=== PATIENT | female | born 1965 | race Hispanic/Latino ===

== ENCOUNTER 2018-10-11 10:57 | Emergency (ER) | payer OTHER ==
[~2018-10-11] VITALS: Ht 162.6 cm; Wt 65.8 kg
--- OUTSIDE RECORDS SUMMARY | 2018-10-11 11:01 | XMS REPORT | Continuity of Care Document ---
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 Abnormal EKG Active Problem 09/17/2018 [facility] PAOD (<span ID="[id number]">Confirmed</span>) Active Problem 09/17/2018 [facility] Medications Medication Details Route Status Patient Instructions Ordering Provider Order Date Source Tacrolimus 0 Refill(s) Active 02/01/2018 [facility] Clobetasol Propionate 0.0005 MG/MG Topical Ointment 1 appl, TOP, BID, 0 Refill(s) Active 02/01/2018 [facility] Estradiol 1 MG Oral Tablet 1 mg=1 tab, PO, Daily, 0 Refill(s) Active 02/01/2018 [facility] Vitamin D3 5000 intl units oral tablet 5,000 IntlUnit=1 tab, PO, Daily, 0 Refill(s) Active 02/01/2018 [facility] levothyroxine 125 mcg (0.125 mg) oral tablet 125 microgram=1 tab, PO, Daily, 0 Refill(s) Active 02/01/2018 [facility] levothyroxine 125 mcg (0.125 mg) oral capsule 125 microgram=1 cap, PO, Daily, # 30 cap, 3 Refill(s) Inactive 02/01/2018 [facility] benzonatate 200 MG Oral Capsule benzonatate 200 mg capsule Take 1 capsule 3 times a day by oral route. Active [facility] Fluticasone propionate 0.05 MG/ACTUAT Metered Dose Nasal [place] fluticasone 50 mcg/actuation nasal spray,suspension [place] 2 sprays every day by intranasal route as needed for 10 days. Active [facility] Levothyroxine Sodium 0.125 MG Oral Tablet levothyroxine 125 mcg tablet Active [facility] Lidocaine Hydrochloride 20 MG/ML Mucous Membrane Topical Solution Lidocaine Viscous 2 % mucosal solution Take 15 mL every 3 hours by oral route as needed. Active [facility] liothyronine sodium 0.005 MG Oral Tablet liothyronine 5 mcg tablet Active [facility] Allergies, Adverse Reactions, Alerts Substance Category Reaction Severity Reaction type Status Date Reported Comments Source Iodine Allergy to substance 12/21/2012 [facility] iodine Assertion Drug allergy Active [facility] Immunizations Immunization Date Given Site Status Last Updated Comments Source Tdap 09/02/2007 completed [facility] Results Order Name Results Value Reference Range Date Interpretation Comments Source Breast Mammo Scrn BRYCE incl CAD MA Breast Mammo Scrn BRYCE incl CAD MA BILATERAL DIGITAL SCREENING MAMMOGRAM WITH CAD: 10/20/2017 CLINICAL: /Routine Annual. Current study was evaluated with a Computer Aided Detection (CAD) system. COMPARISON:Comparison is made to exams dated: 08/19/2008 mammogram, 09/21/2010 mammogram, 02/04/2013 mammogram, and 02/26/2013 mammogram. TECHNIQUE: Mammographic views were obtained using digital acquisition. Current study was also evaluated with a Computer Aided Detection (CAD) system. FINDINGS: The tissue of both breasts is heterogeneously dense, which could obscure detection of small masses. No significant masses, calcifications, or other findings are seen in either breast. There has been no significant interval change. IMPRESSION: NEGATIVE RECOMMENDATION:There is no mammographic evidence of malignancy. A 1 year screening mammogram is recommended.(10/21/2018) This exam was interpreted at [id number] for MITALI Alarcon, 14. Professional services are provided by the [facility]. Arturo Denny M.D., cm/penrad:10/31/2017 14:15:10 Mender Hand(s): RT Melly(R)(M), Nasir Alarcon letter sent: BI-RADS 1/2 Dense Mammogram BI-RADS: 1 Negative 10/20/2017 - - Read by: Jimmy Head MD Dictated Date/time: 10/31/17 14:15 Electronically Signed by: Jimmy Head MD 10/31/17 14:15 FINAL REPORT ISIAH Alarcon RESULT negative 04/08/2017 [facility] SWAB LOCATION Left and Right tonsillar pillars 04/08/2017 [facility] Influenza A negative 04/08/2017 [facility] Influenza B negative 04/08/2017 [facility] Vital Signs Vital Sign Value Date Comments Source BMI Calculated 28.85 02/01/2018 [facility] Weight 73.864 02/01/2018 [facility] Height 160.02 cm 02/01/2018 [facility] Heart Rate 76 02/01/2018 [facility] Systolic (mm Hg) 120 02/01/2018 [facility] Diastolic (mm Hg) 80 02/01/2018 [facility] Diastolic (mm Hg) 70 04/08/2017 [facility] Height 64 04/08/2017 [facility] Systolic (mm Hg) 110 04/08/2017 [facility] Weight 152 04/08/2017 [facility] Encounters Location Location Details Encounter Type Encounter Number Reason For Visit Attending Provider ADM Date DC Date Status Source [place] - [facility] - [id number] Dudley, 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 [id number] Melida Dudley 04/08/2017 [facility] Outpatient [id number] KIMBERLEE TEJEDA 02/01/2018 Active [facility] Outpatient [id number] Kimberlee Tejeda 02/01/2018 02/02/2018 Medical [facility] Outpatient [id number] ECHO VISIT 02/21/2018 Active [facility] Outpatient [id number] ECHO VISIT 02/21/2018 Active [facility] Ambulatory Pre-Reg [id number] NURSE VISIT 02/21/2018 02/21/2018 [facility]ulatory Pre-Reg [id number] NURSE VISIT 02/21/2018 02/21/2018 Medical [facility] Outpatient [id number] ECHO VISIT 02/28/2018 Active [facility] Outpatient [id number] ECHO VISIT 02/28/2018 Active [facility] Outpatient [id number] NURSE VISIT 02/28/2018 [facility]01[facility] [id number] NURSE VISIT 02/28/2018 03/01/2018 [facility] Procedures Procedure Code Date Perfomer Comments Source Hysterectomy [facility] Bypass of stomach [id number] [facility] section [id number] [facility] Hysterectomy [id number] [facility] Tubulation [id number] [facility]
--- OUTSIDE RECORDS SUMMARY | 2018-10-11 11:01 | XMS REPORT | Summary of Care ---
Author Author [facility] Cardiology [facility] Address Unknown Phone Unavailable Encounter HQ Encntr_alias(FIN) [id number] Date(s): 02/21/18 - 02/21/18 [facility] [address] [facility] [address] [place] [phone] Attending Physician: VISIT, NURSE LENDING CONSULTANT ECHO Vital Signs No data available for this section Problem List Condition Effective Dates Status Health Status Informant Bilateral leg Active cramps(Confirmed) Abnormal Active EKG(Confirmed) PAOD (peripheral Active arterial occlusive disease)(Confirmed) Allergies, Adverse Reactions, Alerts Substance Reaction Severity Status iodine Active Medications No data available for this section Results No data available for this section Immunizations No data available for this section Procedures Procedure Date Related Diagnosis Body Site Status Bypass of stomach Completed section Completed Hysterectomy Completed Tubulation Completed Social History Social History Type Response Smoking Status Never smoker; Exposure to Tobacco Smoke None; Cigarette Smoking Last 365 Days No; Reg Smoking Cessation Counseling No entered on: 02/01/18 Assessment and Plan No data available for this section
--- OUTSIDE RECORDS SUMMARY | 2018-10-11 11:01 | XMS REPORT ---
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 Allergies, Adverse Reactions, Alerts This patient has no known allergies or adverse reactions. Medications This patient has no known medications. Results Test Description Test Time Test Comments Text Results Atomic Results Result Comments CHEST 2 VIEWS [place] [address] Patient Name: SCARLET MCELROY MR #: [id number] : 1965 Age/Sex: 52/F Req #: [id number] Adm Physician: Ordered by: CORA OCHOA MD Report #: [id number] Location: ER Room/Bed: Procedure: [id number] DX/CHEST 2 VIEWS Exam Date: 07/04/17 Exam Time: 2040 REPORT STATUS: Signed EXAMINATION: CHEST 2 VIEWS INDICATION: cough COMPARISON: None FINDINGS: TUBES and LINES: None. LUNGS: Lungs are well inflated. Lungs are clear. There is no evidence of pneumonia or pulmonary edema. PLEURA: No pleural effusion or pneumothorax. HEART AND MEDIASTINUM: The cardiomediastinal silhouette is unremarkable. BONES AND SOFT TISSUES: No acute osseous lesion. Soft tissues are unremarkable. UPPER ABDOMEN: No free air under the diaphragm. IMPRESSION: No acute thoracic abnormality. Signed by: Dr. Lb Bruce M.D. on 07/04/2017 9:27 PM Dictated By: LB ECHAVARRIA MD 26 Transcribed By: STEPHANIE on 07/04/172126 COPY TO: CORA OCHOA MD
--- OUTSIDE RECORDS SUMMARY | 2018-10-11 11:01 | XMS REPORT | Summary of Care ---
Author Author [facility] Cardiology [facility] Organization [facility] Address Unknown Phone Unavailable Encounter MAGGY Lim(FIN) [id number] Date(s): 02/01/18 - 02/01/18 [facility] [address] [facility] [address] [place] [phone] Discharge Disposition: Home or Self Care Attending Physician: Eliecer Pete MD Vital Signs Most recent to 1 oldest [Reference Range]: Height 160.02 cm (02/01/18 3:38 PM) Blood Pressure 120/80 mmHg [90-140/60-90 mmHg] (02/01/18 3:38 PM) Peripheral Pulse 76 bpm Rate [60-100 bpm] (02/01/18 3:38 PM) Weight 73.864 kg (02/01/18 3:38 PM) Body Mass Index 28.85 m2 (02/01/18 3:38 PM) Problem List Condition Effective Dates Status Health Status Informant Bilateral leg Active cramps(Confirmed) Abnormal Active EKG(Confirmed) PAOD (peripheral Active arterial occlusive disease)(Confirmed) Allergies, Adverse Reactions, Alerts Substance Reaction Severity Status iodine Active Medications clobetasol topical 0.05% ointment 1 appl, TOP, BID, 0 Refill(s) Start Date: 02/01/18 Status: Ordered estradiol 1 mg oral tablet 1 mg=1 tab, PO, Daily, 0 Refill(s) Start Date: 02/01/18 Status: Ordered levothyroxine 125 mcg (0.125 mg) oral capsule 125 microgram=1 cap, PO, Daily, # 30 cap, 3 Refill(s) Start Date: 02/01/18 Stop Date: 02/01/18 Status: Discontinued levothyroxine 125 mcg (0.125 mg) oral tablet 125 microgram=1 tab, PO, Daily, 0 Refill(s) Start Date: 02/01/18 Status: Ordered tacrolimus 0 Refill(s) Start Date: 02/01/18 Status: Ordered Vitamin D3 5000 intl units oral tablet 5,000 IntlUnit=1 tab, PO, Daily, 0 Refill(s) Start Date: 02/01/18 Status: Ordered Results No data available for this section [...]
--- OUTSIDE RECORDS SUMMARY | 2018-10-11 11:01 | XMS REPORT | Summary of Care ---
Author Author [facility] Cardiology [facility] Address Unknown Phone Unavailable Encounter HQ Encntr_alias(FIN) [id number] Date(s): 02/28/18 - 02/28/18 [facility] [address] [place] [phone] Discharge Disposition: Home or Self Care Attending Physician: VISIT, NURSE COUNTY DIRECTOR WELFARE ECHO Vital Signs No data available for [...]
--- OUTSIDE RECORDS SUMMARY | 2018-10-11 11:01 | XMS REPORT | Encounter Summary ---
Author Organization Unknown Address [address] [place] [address] Phone [phone] Reason for Visit Medical Complaint Instructions 1. Upper respiratory infection upper respiratory infection (cold): care instructions fluticasone 50 mcg/actuation nasal spray,suspension rapid flu (A+B) benzonatate 200 mg capsule 2. Acute pharyngitis sore throat: care instructions Lidocaine Viscous 2 % mucosal solution rapid strep group A, throat 3. Otalgia earache: care instructions Discussion Note Pt is in NAD; Verbalizes understanding of all instructions with no questions at this time. Plan of Care Patient Instructions Stop Amoxicillin, mucinex and nyquil. Take fluticasone as needed for nasal congestion and runny nose. [place] one spray in each nostril twice a day. Take a warm, steamy shower, blow your nose thereafter, and spray in each nostril. Tilt your head up for about 10 seconds and breath through your mouth. Do not sniff or snort the medication in or else the medication will go to your throat and not be absorbed appropriately. Gargle and spit viscous lidocaine as needed for sore throat as directed. Alternate with Ibuprofen and acetaminophen every 4hrs as needed for pain/fever/headache. Take benzonatate for cough as directed. Proper hydration and rest. Return to work/school if free of fever for 24-hrs. Do not share any utensils/cups, no kissing, recommend hand washing after coughing/sneezing/blowing nose and cover face when you do so Take medications as prescribed. Return to clinic or follow up with your PCP within 2-3 days if symptoms worsen as discussed. Reminders Provider Appointments None recorded. Lab Rapid Flu (A+B) 04/08/2017 [facility] Rapid Strep Group a, Throat 04/08/2017 [facility] Referral None recorded. Procedures None recorded. Surgeries None recorded. Imaging None recorded. Medications Name Start Date benzonatate 200 mg capsule Take 1 capsule 3 times a day by oral route. fluticasone 50 mcg/actuation nasal spray,suspension [place] 2 sprays every day by intranasal route as needed for 10 days. levothyroxine 125 mcg tablet Lidocaine Viscous 2 % mucosal solution Take 15 mL every 3 hours by oral route as needed. liothyronine 5 mcg tablet Medications Administered None recorded. Vitals Height Weight BMI Blood Pressure 5 ft 4 in 152 lbs 26.1 kg/m2 110/70 mm[Hg] Lab Results Date Name Specimen Result Interpretation Description Value Range Status Address Rapid Strep Group a, Throat Result negative [facility]: [address] [place] [address] Swab Location Left and Right tonsillar pillars [facility]: [address] [place] [address] Rapid Flu (A+B) Influenza a negative [facility]: [address] [place] [address] Influenza B negative [facility]: [address] [place] [address] Allergies Code Code System Name Reaction Severity Status Onset 5933 RxNorm Iodine Active Problems Name Status Onset Date Source Hypotrichosis of Eyelid Active Encounter Procedures Date Name Performed by Hysterectomy Information not available Vaccine List Vaccine Type Tdap 09/02/2007 Social History Smoking Status Never Smoker Past Encounters 04/08/2017 Upper Respiratory Infection; Acute Pharyngitis; Otalgia 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 History of Present Illness [id number] Reported By: Patient HPI: Quality: cannot identify. Duration: 3 days. Severity: subjective temperature. Context: no ill contacts, no tick/insect bites, no recent travel, no new medications. Associated Symptoms: no fever/chills, no muscle aches, no rash, no lethargy, headache, cough, nasal passage blockage (stuffiness), nasal discharge; sore throat, chills, body aches, cough, headache, and B/L earache. Modifying Factors nothing gives relief Note:
Review of Systems:ROS as noted in the HPI Review of Systems Basic Reported By: Patient Physical Exam Adult Basic, 14-21 Yr Male, Adult Female Complete Reported By: Patient Constitutional: General Appearance: healthy-appearing, well-nourished, well-developed. Level of Distress: NAD. Ambulation: ambulating normally Psychiatric: Mental Status: active and alert. Orientation: to time, to place, to person Kzd-Uina-Lpjpu-Throat: Ears: no lesions on external ear, no outer ear tenderness, EACs clear, TMs clear. Hearing: no hearing loss. Nose: no lesions on external nose, nares patent, no septal deviation, nasal passages clear, no sinus tenderness, nasal discharge--rhinorrhea, post nasal drip; pale and edematous nasal turbinates bilaterally. Lips, Teeth, and Gums: no mouth or lip ulcers, no bleeding gums, normal dentition. Oropharynx: moist mucous membranes, no exudates, tonsils not enlarged, erythema Neck: Lymph Nodes: no cervical LAD Lungs: Respiratory effort: no dyspnea, no tachypnea, no use of accessory muscles, no intercostal retractions. Auscultation: breath sounds normal Cardiovascular: Heart Auscultation: RRR, no murmurs Neurologic: Gait and Station: normal gait, normal station
--- OUTSIDE RECORDS SUMMARY | 2018-10-11 11:01 | XMS REPORT | Summary of Care ---
Author Author [facility] Cardiology [facility] Address Unknown Phone Unavailable Encounter HQ Encntr_alias(FIN) [id number] Date(s): 02/21/18 - 02/21/18 [facility] [address] [facility] [address] [place] [phone] Attending Physician: VISIT, NURSE SUPERVISOR CORE DRILLING ECHO Vital Signs No data available for [...]
--- OUTSIDE RECORDS SUMMARY | 2018-10-11 11:01 | XMS REPORT | Summary of Care ---
Author Author [facility] Cardiology [facility] Address Unknown Phone Unavailable Encounter HQ Encntr_alias(FIN) [id number] Date(s): 02/28/18 - 02/28/18 [facility] [address] [place] [phone] Discharge Disposition: Home or Self Care Attending Physician: VISIT, NURSE INSOLE REINFORCER ECHO Vital Signs No data available for [...]
[2018-10-11] MEDS ORDERED: ONDANSETRON HCL INJ 2MG/ML 2ML 2 MG/ML VIAL IV STA (11:50)
[2018-10-11] MEDS ORDERED: SODIUM CHLORIDE 0.9% 1000ML 1,000 ML IV SCH (12:00)
[2018-10-11 12:15] VITALS: BP 110/48
== END 2018-10-11 12:22 | disposition home or self-care (01) ==
LOC: FSED 10:57
DX: R11.2 Nausea with vomiting, unspecified (principal); R19.7 Diarrhea, unspecified; K52.9 Noninfective gastroenteritis and colitis, unspecified
CPT/HCPCS: 80053; 81003; 85025; 99283; J2405; J7030